=== PATIENT | female | born 1965 | race African-American/Black ===

== ENCOUNTER 2019-07-06 19:26 | Emergency (ER) | payer OTHER ==
[~2019-07-06] VITALS: Ht 172.7 cm; Wt 96.2 kg
[2019-07-06 19:38] VITALS: Ht 172.7 cm; Wt 96.2 kg
[2019-07-06 23:59] VITALS: BP 145/78
== END 2019-07-06 23:59 | disposition home or self-care (01) ==
LOC: ED 19:26
DX: R51 Headache (principal); H53.149 Visual discomfort, unspecified; I10 Essential (primary) hypertension
CPT/HCPCS: J1200; J1885; J2765; J7030